=== PATIENT | male | born 1980 | race Two or more races ===

== ENCOUNTER 2021-06-12 02:28 | Emergency (ER) | payer SELFPAY ==
[~2021-06-12] VITALS: Ht 162.6 cm; Wt 72.7 kg
[2021-06-12] MEDS ORDERED: LIDOCAINE 1% 10 ML VIAL SQ ONE (02:45)
[2021-06-12] MEDS ORDERED: IBUPROFEN 600 MG TABLET PO ONE (02:45)
[2021-06-12] MEDS ORDERED: BACITRACIN 0.9 GM PACKET OINTMENT TP ONE (02:45)
[2021-06-12] MEDS ORDERED: PERTUSS(ACELL),DIPH,TET VAC/PF 0.5 ML SYRINGE IM. ONE (02:45)
[2021-06-12 04:20] VITALS: BP 139/94
== END 2021-06-12 04:32 | disposition home or self-care (01) ==
LOC: EMS 02:30
DX: S61.412A Laceration without foreign body of left hand, initial encounter (principal); F10.129 Alcohol abuse with intoxication, unspecified; F17.210 Nicotine dependence, cigarettes, uncomplicated; X99.0XXA Assault by sharp glass, initial encounter; Y93.89 Activity, other specified; Y92.89 Other specified places as the place of occurrence of the external cause; Y99.8 Other external cause status
CPT/HCPCS: 12002; 73130; 90471; 90715; 99283; J3490